=== PATIENT | female | born 1985 | race Asian ===

== ENCOUNTER 2024-06-28 10:20 | Outpatient (AMB) | payer OTHER, SELFPAY ==
--- NOTE | 2024-06-28 10:45 | A.OFFPC_ITS ---
Vital Signs 06/28/24 10:52 06/28/24 10:53 Height 5 ft 1.22 in Weight 184 lb 2 oz BMI 34.5 BP 148/104 H 144/102 H Blood Pressure Location Lt brachial Lt brachial Position Sitting Sitting Respiration 16 Pulse 108 H Pulse Source Pulse Oximeter Pulse Oximetry (%) 98 Oxygen Delivery Method Room Air Intake Visit Reasons: est care Tobacco use date assessed: 06/28/24 Dental Screening Dental Screen Date: 06/28/24 Did you have a dental visit in the last 12 months?: No Did you have a dental problem in the last 6 months where you did not have access to dental care?: No Was dental information given to patient?: Patient has dentist HPI HPI Comments History of Present Illness Details 38 year old female with a past medical h istory of gestational diabetes, kidney stones presenting to [facility] She has no concerns at this time. Blood pressure is high today. Says has not been elevated in the past. Denies headaches, vision changes. She is overdue for labs and for pigs feet cleaner care ROS CONSTITUTIONAL: Denies weight loss, fever and chills. HEENT: Denies changes in vision and hearing. RESPIRATORY: Denies SOB and cough. CV: Denies palpitations and CP GI: Denies abdominal pain, nausea, vomiting and diarrhea. : Denies dysuria and urinary frequency. MSK: Denies new myalgia and joint pain. SKIN: Denies rash and pruritus. NEUROLOGICAL: Denies headache PSYCHIATRIC: Denies recent changes in mood. PHYSICAL EXAM: GENERAL: Alert and oriented x 3. NAD EYES: EOMI. Anicteric. HENT: Moist mucous membranes. No scleral icterus. No cervical lymphadenopathy. LUNGS: Clear to auscultation bilaterally. CARDIOVASCULAR: Regular rate and rhythm. No murmur. No JVD. ABDOMEN: Soft, non-tender +bs EXTREMITIES: No edema. Non-tender. SKIN: No rashes or lesions. Warm. NEUROLOGIC: No focal neurological deficits. CN II-XII grossly intact PSYCHIATRIC: Cooperative. Appropriate mood and affect [facility] Medical History (Updated 06/28/24 @ 11:16 by Antoniette Bansal MD) Hx of nephrolithotomy with removal of calculi Surgical History (Updated 06/28/24 @ 11:20 by Shreya Teran CMA) H/O tubal ligation History of appendectomy H/O section Social History (Updated 06/28/24 @ 11:21 by Shreya Teran [facility] Housing: House Alcohol intake: current Comment: Rarely, on special occasions Patient Tobacco Use Status: Never used Tobacco e-Cigarette/Vaping Use: Never Used Second Hand Smoke Exposure: No service: No Current occupational status: unemployed Current occupational exposures/hazards: No Cognitive needs: No Hearing needs: No Vision needs: No Female Reproductive History Menstrual control method: permanent sterilization Permanent Sterilization: BTL (tubal ligation) Questionnaire PHQ-9 Over the last 2 weeks, how often have you been bothered by any of the following problems? 1. Little interest or pleasure in doing things: not at all 2. Feeling down, depressed, or hopeless: not at all 3. Trouble falling or staying asleep, or sleeping too much: not at all 4. Feeling tired or having little energy: not at all 5. Poor appetite or overeating: not at all 6. Feeling bad about yourself - or that you are a failure or have let yourself or your family down: not at all 7. Trouble concentrating on things, such as reading the newspaper or watching television: not at all 8. Moving or speaking so slowly that other people could have noticed. Or the opposite - being so fidgety or restless that you have been moving around a lot more than usual: not at all 9. Thoughts that you would be better off or of hurting yourself in some way: not at all Total score: 0 Depression Screening Interpretation: Negative Depression Screening Done: Yes 25050 - PHQ-9 Billing: Yes Source: Developed by Drs. Jaswinder Gonzalez, Lin Castillo, Fracisco Silva and colleagues, with an educational randy from [employer]. Thrive Questionnaire Date Thrive assessed: 06/28/24 I am a: Patient Within the past 12 months, did the food you bought not last and you didn't have the money to get more?: Never true Within the past 12 months, did you worry whether your food would run out before you got money to buy more?: Never true Do you have trouble paying for medicines?: No Do you have trouble getting transportation to medical appointments?: No Do you have trouble paying your heating and electricity bill?: No Do you have trouble taking care of your child, family member or friend?: No Do you have trouble with day-to-day activities such as bathing, preparing meals, shopping, managing finances, etc.?: No Are you currently unemployed and looking for a job?: No Are you interested in more education?: No Please select the resources that you would like help with: None THRIVE Score: 0 SONIA-7 AMB Questionnaire SONIA-7 Date SONIA - 7 assessed: 06/28/24 Feeling nervous, anxious, or on edge: 0 = Not at all Not being able to stop or control worryin = Not at all Worrying too much about different things: 0 = Not at all Trouble relaxin = Not at all Being so restless that it is hard to sit still: 0 = Not at all Becoming easily annoyed or irritable: 0 = Not at all Feeling afraid as if something awful might happen: 0 = Not at all Total SONIA-7 score (0-4 normal; 5-9 mild; 10-14 moderate; 15-21 severe): 0 Source: Developed by Drs. Jaswinder Gonzalez, Lin Castillo, Fracisco Silva and colleagues, with an educational randy from [employer]. SONIA-7 Assessment Billing SONIA-7 Assessment Tool: SONIA-7 Assessment 03078 Physical exam (Primary Care) Vital Signs: Last Vital Signs Pulse 108 H 06/28/24 10:52 Resp 16 06/28/24 10:52 BP 144/102 H 06/28/24 10:53 Pulse Ox 98 06/28/24 10:52 Oxygen Delivery Method Room Air 06/28/24 10:52 BMI result Body Mass Index 34.5 Tobacco/Smoking Status: Tobacco use Status Tobacco use date assessed 06/28/24 06/28/24 10:52 Patient Tobacco Use Status Never used Tobacco 06/28/24 10:52 e-Cigarette/Vaping Use Never Used 06/28/24 10:52 Depression Screening Interpretation: Negative Coding Level of Care Code New Pt Level 4 (91596) Diagnoses Encounter to establish care Z76.89 History of gestational diabetes Z86.32 History of kidney stones Z87.442 Elevated blood pressure reading with diagnosis of hypertension I10 Additional Codes PHQ-9 - 42815 - PHQ-9 Billing: Yes ([id number]) SONIA-7 Assessment Billing - SONIA-7 Assessment Tool: SONIA-7 Assessment 40272 ([id number]) Assessment & Plan Assessment & Plan (1) Encounter to establish care: Code(s): Z76.89 - Persons encountering health services in other specified circumstances Category: Medical (2) History of gestational diabetes: Code(s): Z86.32 - Personal history of gestational diabetes Category: Medical (3) History of kidney stones: Code(s): Z87.442 - Personal history of urinary calculi Category: Medical (4) Elevated blood pressure reading with diagnosis of hypertension: Code(s): I10 - Essential (primary) hypertension Category: Medical Plan 38 year old female presenting to establish care Past medical, surgical, social and family history reviewed Labs ordered Referral to gynecology Orders: Orders Complete Blood Count Auto Diff Today Z13.0 - Encounter for screening for diseases of the blood and blood-forming organs and certain disorders involving the immune mechanism, Z13.220 - Encounter for screening for lipoid disorders, Z13.228 - Encounter for screening for other metabolic disorders, Z86.32 - Personal history of gestational diabetes Comprehensive Met. Panel Today Z13.0 - Encounter for screening for diseases of the blood and blood-forming organs and certain disorders involving the immune mechanism, Z13.220 - Encounter for screening for lipoid disorders, Z13.228 - Encounter for screening for other metabolic disorders, Z86.32 - Personal history of gestational diabetes TSH reflex Free T4 Today Z13.0 - Encounter for screening for diseases of the blood and blood-forming organs and certain disorders involving the immune mechanism, Z13.220 - Encounter for screening for lipoid disorders, Z13.228 - Encounter for screening for other metabolic disorders, Z86.32 - Personal history of gestational diabetes Hemoglobin A1c Today Z13.0 - Encounter for screening for diseases of the blood and blood-forming organs and certain disorders involving the immune mechanism, Z13.220 - Encounter for screening for lipoid disorders, Z13.228 - Encounter for screening for other metabolic disorders, Z86.32 - Personal history of gestational diabetes Lipid Panel Today Z13.0 - Encounter for screening for diseases of the blood and blood-forming organs and certain disorders involving the immune mechanism, Z13.220 - Encounter for screening for lipoid disorders, Z13.228 - Encounter for screening for other metabolic disorders, Z86.32 - Personal history of gestational diabetes Referrals UNIVERSITY DEMONSTRATOR Referral Z76.89 - Persons encountering health services in other spe cified circumstances
[2024-06-28 10:52] VITALS: BP 148/104; PULSE 108; RESP 16; O2SAT 98; BMI 34.5
[2024-06-28 10:53] VITALS: BP 144/102
--- OUTSIDE RECORDS SUMMARY | 2024-06-28 12:13 | XMS_ITS | Clinical Summary ---
Author Organization [facility] Address [address] [place] [id number] Care Team Providers Care Tool Room Supervisor Name Role Phone Dee Short MD Primary Care Provider [phone] Allergies No known active allergies Active Problems Problem Noted Date Diagnosed Date PCOS (polycystic ovarian syndrome) 08/01/2021 Hirsutism 04/19/2021 Irregular menses 04/19/2021 Microalbuminuria 04/19/2021 HLD (hyperlipidemia) 09/16/2018 Obesity (BMI 30.0-34.9) 06/16/2018 Type II diabetes mellitus with renal manifestati ons 06/16/2018 Vitamin D deficiency 11/14/2017 Constipation 10/07/2017 Kidney stone 10/07/2017 Umbilical hernia without obstruction and without gangrene 10/07/2017 Immunizations Name Administration Dates Next Due Hepatitis B (Eavzxcp-E-Dpuuf , Recombivax HB-Adult) 19yo and older 12/19/2011,07/25/2011,06/16/2011 Influenza Quadravalent, MDCK , 0.5ml, preservative free (Flucelvax) 6mo and older 04/19/2021,04/17/2020,06/16/2018 Influenza trivalent, with pr eservative (Fluzone; Afluria) 6mo and older 02/08/2015,01/12/2014,12/22/2012,02/03 MMR, measles mumps and rubel la Live (Priorix; M-M-R II) 12mo and older 05/16/2011,01/08/2011 Moderna SARS-CoV-2 COVID-19, mRNA, LNP-S, preservative free 08/01/2020,07/04/2020 Pneumococcal polysaccharide 23 valent (Pneumovax 23) 2yo and older 04/19/2021 Td Tetanus diptheria (Tdvax) 7yo and older 01/08/2011 Tdap Tetanus diptheria acell ular pertussis (Boostrix; Adacel) 7yo and older 08/21/2016,05/16/2011 Surgical History Surgery Date Site/Laterality Comments SECTION PROCEDURE: HISTORICAL ; COMMENT: X2 CHOLECYSTECTOMY PROCEDURE: HISTORICAL CHOLECYSTECTOMY TUBAL LIGATION 09/27/2019 Bilateral PROCEDURE: HISTORICAL TUBAL LIGATION KIDNEY STONE SURGERY 09/2020 Left PROCEDURE: CT NEPHROLITHOTOMY REMOVAL CALCULUS Medical History Medical History Date Comments Gestational diabetes DX:Gestatio nal diabetes Vitamin D deficiency 11/14/2017 DX:Vitamin D deficiency Family History Medical History Relation Name Comments No Known Problems Brother x 2 No Known Problems Father Diabetes Mother No Known Problems Sister x 3 Breast cancer Neg Hx Colon cancer Neg Hx Ovarian cancer Neg Hx Relation Name Status Comments Brother x 2 Alive Father Alive Maternal Grandfather Maternal Grandmother Mother Alive Paternal Grandfather Paternal Grandmother Sister x 3 Alive Social History Tobacco Use Types Packs/Day Years Used Date Smoking Tobacco: Never Smokeless Tobacco: Former Alcohol Use Standard Drinks/Week Comments No 0 (1 standard drink = 0.6 oz pur e alcohol) Comments Unknown Sex and Gender Information Value Date Recorded Sex Assigned at Not on file Legal Sex Female 2:53 PM EST Gender Identity Not on file Sexual Orientation Not on file Obstetrics History Last Filed Vital Signs Vital Sign Reading Time Taken Comments Blood Pressure 120/77 07/31/2021 10:43 AM EDT Pulse 88 07/31/2021 10:43 AM EDT Temperature - - Respiratory Rate - - Oxygen Saturation - - Inhaled Oxygen Concentration - - Weight 85.9 kg (189 lb 6.4 oz) 07/31/2021 10:43 AM EDT Height 157.5 cm (5' 2 ) 07/31/2021 10:43 AM EDT Body Mass Index 34.64 07/31/2021 10:43 AM EDT Plan of Treatment Health Maintenance Due Date Last Done Comments Diabetes: Annual Foot Exam 11/07/1997 Diabetes: Annual Retina Eye Exam 11/07/1997 Depression Screening 02/19/2022 HIV Screening 02/19/2022 Hepatitis C Screening 02/19/2022 Social Influencers of Health Screening 02/19/2022 Diabetes: Blood Sugar Control Test (HGBA1C) 03/05/2022 04/19/2021 Diabetes: Annual Urine Albumin-Creatinine Ratio (uACR) 04/19/2022 04/19/2021 Diabetes: Annual GFR (Glomerular Filtration Rate) 04/19/2022 04/19/2021 Pneumococcal Vaccine: Pediatrics (0 to 5 Years) and At-Risk Patients (6 to 64 Years) (2 of 2 - PCV) 04/19/2022 04/19/2021 COVID-19 Vaccine (4 - season) 2023 03/15/2021, 08/01/2020, 07/04/2020 Influenza Vaccine (#1) 2023 , 04/17/2020, 06/16/2018, Additional history exists Cholesterol Screening (Lipid Panel) 04/19/2026 04/19/2021 Cervical Cancer Screening: HPV 07/31/2026 07/31/2021 DTaP,Tdap,and Td Vaccines (4 - Td or Tdap) 08/21/2026 08/21/2016, 05/16/2011, 01/08/2011 MMR Vaccines Aged Out 05/16/2011, 01/08/2011 No lo nger eligible based on patient's age to complete this topic Hepatitis B Vaccines Completed 12/19/2011, 07/25/2011, 06/16/2011 HIB Vaccines Aged Out No longer eligi ble based on patient's age to complete this topic HPV Vaccines Aged Out No longer eligi ble based on patient's age to complete this topic Hepatitis A Vaccines Aged Out No long er eligible based on patient's age to complete this topic IPV Vaccines Aged Out No longer eligi ble based on patient's age to complete this topic Meningococcal ACWY Vaccine Aged Out N o longer eligible based on patient's age to complete this topic Meningococcal B Vaccine Aged Out No l onger eligible based on patient's age to complete this topic RSV Immunization Patients Under 20 months Aged Out No longer eligible based on patient's age to complete this topic Varicella Vaccines Aged Out No longer eligible based on patient's age to complete this topic Procedures Procedure Name Priority Date/Time Associated Diagnosis Comments HM HPV Routine 07/31/2021 HM URINE ALBUMIN CREATININE RATIO Routine 04/19/2021 ANNUAL BMP BLOOD TEST Routine 04/19/2021 HEMOGLOBIN A1C Routine 04/19/2021 LIPID PANEL Routine 04/19/2021 from Last 3 Months or Most Recently Relevant to Health Maintenance Results * Cervical Cancer Screening: HPV (07/31/2021) Pathologist [facility] Cervical Cancer Screening: HPV negative, abstracted Result [facility] Provider HEALTH MAINTENANCE Final Result * Urine Albumin Creatinine Ratio (04/19/2021) [facility] Urine Albumin Creatinine Ratio abstracted Result [facility] Provider HEALTH MAINTENANCE Final Result * Annual BMP Blood Test (04/19/2021) [facility] Annual BMP Blood Test abstracted Result [facility] Provider HEALTH MAINTENANCE Final Result * Hemoglobin A1c (04/19/2021) [facility] Hemoglobin A1C 5.8 <=6.5 % Blood Venous blood specimen / Unknown Result [facility] Provider LAB BLOOD ORDERABLES [place] Result * (ABNORMAL) Lipid panel (04/19/2021) [facility] LDL/HDL Ratio 5(A) 0 - 4 Triglycerides 136 0 - 150 mg/dL Cholesterol 235(A) 0 - 200 mg/dL HDL 49 >=40 mg/dL LDL Cholesterol 159(A) 0 - 100 mg/dL Blood Venous blood specimen / Unknown Result [facility] Provider LAB BLOOD ORDERABLES [place] Result from Last 3 Months or Most Recently Relevant to Health Maintenance Care Teams Tool Room Supervisor Relationship Specialty Start Date End Date Dee Short MD [address] [place] [address] PCP - General Internal Medicine 10/1/21
--- OUTSIDE RECORDS SUMMARY | 2024-06-28 12:13 | XMS_ITS | Clinical Summary ---
Author Organization [facility] Address [address] [place] [address] Care Team Providers Care Line Locator Name Role Phone Unavailable Primary Care Provider Unavailabl e Source Comments PLEASE NOTE, if this patient is a minor, it may be UNLAWFUL to discuss sensitive information that is contained in these records (such as FAMILY PLANNING, MENTAL HEALTH or SUBSTANCE ABUSE) with the minor patient's parent or other person without the patient's specific authorization.[facility] Allergies No known active allergies Medications letrozole (FEMARA) 2.5 mg tabletIndication s:Infertility associated with anovulation Take 2 tabs po daily on days 3-7 of menstrual cycle. 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 5 Active cholecalciferol, vitamin D3, 2,000 unit capsuleIndicatio ns:Vitamin D deficiency disease Take 1 Cap by mouth once daily. 90 Cap 3 5 Active Active Problems Problem Noted Date Diagnosed Date Infertility associated with anovulation 02/09/20 15 Vitamin D deficiency disease 08/30/2012 Overview (12/22/2012): = 19 08/30/12 Obesity 06/16/2011 Overview (12/22/2012): BMI = 31.8 11/11/11 BMI = 33.1 08/27/12 Irregular menses Resolved Problems Problem Noted Date Diagnosed Date Resolved Date Pre-DM 09/02/2012 02/09/2015 Immunizations Immunization Administration Dates Next Due Flu, Preservative Free 02/08/2015 Hep B, Adult/Adol (ENERGIX/RECOMBIVAX) 2,07/25/2011,06/16/2011 History Of Varicella 05/16/2011 INFLUENZA, SEASONAL, INJECTABLE 12/22/2012,02/03 MMR (MMR II/Priorix) 05/16/2011,01/08/2011 Moderna COVID-19 Vaccine, re d cap blue label, 12+ Primary Series 08/01/2020,07/04/2020 TDAP 05/16/2011 Td(adult),2 Lf tetanus toxoi d,preservative free 01/08/2011 Family History Relation Name Status Comments Father Alive Mother Alive Social History Tobacco Use Types Packs/Day Years Used Date Smoking Tobacco: Never Smokeless Tobacco: Never Alcohol Use Standard Drinks/Week Comments No 0 (1 standard drink = 0.6 oz pur e alcohol) Social Connections Answer Date Recorded Social Connections and Isolation 0 07/04/2020 Financial Resource Strain Answer Date R ecorded Financial Resource Strain 0 2020 Stress Answer Date Recorded Stress 0 07/04/2020 Physical Activity Answer Date Recorded Physical Activity 0 07/04/2020 Food Insecurity Answer Date Recorded Food 0 07/04/2020 Transportation Needs Answer Date Record ed Transportation 0 07/04/2020 Housing Stability Answer Date Recorded Housing 0 07/04/2020 Safety and Environment Answer Date Lalito rded Safety 0 07/04/2020 Utilities Answer Date Recorded Utilities 0 07/04/2020 Employment Answer Date Recorded Employment 0 07/04/2020 Comments No Sex and Gender Information Value Date Recorded Sex Assigned at Not on file Legal Sex Female 11:36 AM PDT Gender Identity Not on file Sexual Orientation Not on file 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 Not on file Not on file Last Filed Vital Signs Vital Sign Reading Time Taken Comments Blood Pressure 110/70 02/08/2015 10:41 AM EST Pulse 72 03/11/2013 12:19 PM EST Temperature 36.7 ??C (98 ??F) 02/08/2015 10:41 AM EST Respiratory Rate 14 02/08/2015 10:41 AM EST Oxygen Saturation - - Inhaled Oxygen Concentration - - Weight 80.3 kg (177 lb) 02/08/2015 10:41 AM EST Height 154.9 cm (5' 1 ) 04/25/2013 10:42 AM EST Body Mass Index 33.44 04/25/2013 10:42 AM EST Plan of Treatment Health Maintenance Due Date Last Done Comments Anxiety Screening 1987 HPV Screening 1987 Hepatitis C Screening 1987 Pap + HPV 1987 Tobacco Screening 1987 HIV Screening 11/07/2002 Relationship Safety Screening/Counseling 11/07/2002 Cervical Cancer Screening 11/07/2008 Pap Smear 11/07/2008 Annual Preventive Care Visit 02/09/2016 02/08/2015 Hypertension Screening (#1) 02/07/2018 Diabetes Screening 02/08/2018 02/08/2015, 02/08/2015 [id number] ( season) 2023 021, 07/04/2020 Imm-Influenza (#1) 2023 04/17/2020, 0 06/16/2018, 02/08/2015, Additional history exists Alcohol and Drug Screen 03/23/2024 Depression Annual Screen 03/23/2024 Imm-DTaP/Tdap/Td (3 - Td or Tdap) 08/21/2026 08/21/2016, 05/16/2011, 01/08/2011 Imm-Hepatitis B Completed 12/19/2011, 050 06/2011, 06/16/2011 Cervical Ablation/Cold-Knife Conization Discontinued Cervical Cryotherapy Discontinued Colposcopy Discontinued Endometrial Biopsy Discontinued Excision/Leep Discontinued HPV Genotyping Discontinued Vaginal Pap Discontinued Vulvoscopy Discontinued Procedures Procedure Name Priority Date/Time Associated Diagnosis Comments HEMOGLOBIN GLYCOSYLATED A1C Routine 02/08/2015 11:40 AM EST Routine general medical examination at a health care facility Pre-DM from Last 3 Months or Most Recently Relevant to Health Maintenance Results * HEMOGLOBIN, GLYCOSYLATED (A1C) (02/08/2015 11:40 AM EST) GLYCATED HEMOGLOBIN A1C 5.7 <6.5 % [facility] ESTIM[facility] AVERAGE GLUCOSE 117 mg/dL [facility] Blood specimen (specimen) Blood / Unknown 02/08/2015 11:40 AM EST 02/08/2015 1:33 PM EST [facility] 02/08/2015 9:15 PM EST [employer] [address] [place] [address] PT ID [id number] ORD# [id number] [facility] - BLOOD DRAW Final Res ult [facility] [address] [place] [address], from Last 3 Months or Most Recently Relevant to Health Maintenance Insurance [facility] [employer] PL[employer] Member Subscriber Plan / Payer (Ef fective 2020-Present) Name:Elsa Godfrey Relation to Subscriber:Self Name:Elsa Godfrey Payer ID:[id number] Group ID:[id number] Type:Medicaid Address: [facility] [address] [place] [address]
== END 2024-06-28 12:39 | disposition home or self-care (01) ==
PROVIDERS: PCP Internal Medicine; Visit Provider Internal Medicine
DX: Z76.89 Persons encountering health services in other specified circumstances (principal); Z86.32 Personal history of gestational diabetes; Z87.442 Personal history of urinary calculi; I10 Essential (primary) hypertension

== ENCOUNTER → 2024-06-28 10:20 | Outpatient (BNVA) | payer OTHER, SELFPAY | PROVIDERS: PCP Internal Medicine; Visit Provider Internal Medicine | DX: I10 Essential (primary) hypertension (principal); N20.0 Calculus of kidney; Z87.442 Personal history of urinary calculi; Z86.32 Personal history of gestational diabetes; Z76.89 Persons encountering health services in other specified circumstances | CPT/HCPCS: 96127; 99202 ==

== ENCOUNTER 2024-06-30 11:43 | Outpatient (REF) | payer OTHER, SELFPAY ==
--- OUTSIDE RECORDS SUMMARY | 2024-06-30 14:19 | XMS_ITS | Clinical Summary ---
Author Organization [facility] Address [address] [place] [address] Care Team Providers Care Care Administrative Tech Name Role Phone Unavailable Primary Care Provider [...] on days 3-7 of menstrual cycle. 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 - 02/08/2015 9:15 PM EST [employer] [address] [place] [address] PT ID [id number] ORD# [id number] [facility] - BLOOD DRAW Final Res ult [facility] [address] [place] [address], from Last 3 Months or Most Recently Relevant to Health Maintenance Insurance [facility] [employer] PLAN Member Subscriber Plan / Payer (Ef fective 2020-Present) Name:Elsa Godfrey Relation to Subscriber:Self Name:Elsa Godfrey Payer ID:[id number] Group ID:[id number] Type:Medicaid Address: [facility] [address] [place] [address]
--- OUTSIDE RECORDS SUMMARY | 2024-06-30 14:19 | XMS_ITS | Clinical Summary ---
Author Organization [facility] it Address [id number] [place] [id number] Care Team Providers Care Java Scala Developer Name Role Phone Dee Short MD Primary Care Provider [phone] Allergies No known active allergies Active Problems Problem Noted Date Diagnosed Date PCOS (polycystic ovarian syndrome) 08/01/2021 Hirsutism 04/19/2021 Irregular menses 04/19/2021 Microalbuminuria 04/19/2021 HLD (hyperlipidemia) 09/16/2018 Obesity (BMI 30.0-34.9) 06/16/2018 Type II diabetes mellitus wi th renal manifestations (CMS/HCC V24, CMS/HCC V28) 06/16/2018 Vitamin D deficiency 11/14/2017 Constipation 10/07/2017 Kidney stone 10/07/2017 Umbilical hernia without obstruction and without gangrene 10/07/2017 Immunizations Name Administration Dates Next Due Hepatitis B ([id number] , Recombivax HB-Adult) 19yo and older 12/19/2011,07/25/2011,06/16/2011 [...] LIGATION KIDNEY STONE SURGERY 09/2020 Left PROCEDURE: AR NEPHROLITHOTOMY REMOVAL CALCULUS Medical History Medical History [...] season) 2023 03/15/2021, 08/01/2020, 07/04/2020 Influenza Vaccine (Season Ended) 2024 04/19/2021, 04/17/2020, 06/16/2018, Additional history exists Cholesterol Screening [...] Results * Cervical Cancer Screening: HPV (07/31/2021) [facility] Cervical Cancer Screening: HPV negative, abstracted Result [facility] Provider HEALTH MAINTENANCE Final Result * Urine Albumin Creatinine Ratio (04/19/2021) [facility] Urine Albumin Creatinine Ratio abstracted Result [facility] Provider HEALTH MAINTENANCE Final Result * Annual BMP Blood Test (04/19/2021) [facility] Annual BMP Blood Test abstracted Result [facility] Provider HEALTH MAINTENANCE Final Result * Hemoglobin A1c (04/19/2021) [facility] Hemoglobin A1C 5.8 <=6.5 % Blood Venous blood specimen / Unknown Result [facility] Provider LAB BLOOD ORDERABLES [facility] Result * (ABNORMAL) Lipid panel (04/19/2021) [facility] LDL/HDL Ratio 5(A) 0 - 4 Triglycerides 136 0 - 150 mg/dL Cholesterol 235(A) 0 - 200 mg/dL HDL 49 >=40 mg/dL LDL Cholesterol 159(A) 0 - 100 mg/dL Blood Venous blood specimen / Unknown Result [facility] Provider LAB BLOOD ORDERABLES [facility] Result from Last 3 Months or Most Recently Relevant to Health Maintenance Care Teams Java Scala Developer Relationship Specialty Start Date End Date Dee Short MD [address] [place] [id number] PCP - General Internal Medicine 12/21/20
[2024-06-30 14:39] LABS: MANUAL DIFF FLAG NO
[2024-06-30 14:54] LABS: Basophils Percent Auto 0.7 % (0-2); Eosinophils Absolute Auto 0.3 X10*3/uL (0.0-0.4); Eosinophils Percent Auto 4.6 % (0-4); Hematocrit 38.5 % (37.0-47.0); Hemoglobin 12.5 g/dl (12.0-16.0); Imm Gran Abs Auto 0.01 X10*3/uL (0.00-0.03); Imm Gran Pct Auto 0.2 % (0.0-0.4); Lymphocytes Absolute Auto 1.6 X10*3/uL (1.2-4.9); Mean Corpuscular HGB Conc 32.5 g/dl (31.0-35.0); Mean Platelet Volume 11.9 fL (9.4-12.3); Monocytes Absolute Auto 0.5 X10*3/uL (0.1-1.2); Monocytes Percent Auto 8.3 % (2-11); Neutrophils Absolute Auto 3.3 x10*3/uL (2.0-8.3); Neutrophils Percent Auto 58.2 % (45-73); Platelet Count 244 X10*3/uL (160-400); Red Blood Count 4.81 X10*6/uL (4.20-5.50); White Blood Count 5.6 X10*3/uL (4.8-10.8)
[2024-06-30 15:10] LABS: Estimated Average Glucose 126 mg/dL; Hemoglobin A1C 140.8025 umol/L; Total Hemoglobin (HGBA1C) 3376.9263 umol/L
[2024-06-30 15:17] LABS: Alanine Aminotransferase 126 U/L (0-31); Albumin Level 3.9 g/dL (3.5-5.0); Anion Gap 11 (12-20); Aspartate Amino Transferase 119 U/L (5-31); Bilirubin Total 0.6 mg/dL (0.0-1.0); Blood Urea Nitrogen 5 mg/dL (9-16); Carbon Dioxide 26 mmol/L (22-29); Chloride 105 mmol/L (96-108); Cholesterol 243 mg/dL (<200); Estimated Glomerular Filt Rate > 60; Glucose Random 119 mg/dL (60-115); HDL Cholesterol 51 mg/dL (>40); LDL Cholesterol Calculated 156 mg/dL (<100); Potassium 3.1 mmol/L (3.3-5.1); Sodium 139 mmol/L (135-145); Total Protein 6.9 g/dL (6.5-8.0); Triglycerides 181 mg/dL (<150)
[2024-06-30 15:27] LABS: Alkaline Phosphatase 109 U/L (39-117)
== END 2024-06-30 11:44 | disposition home or self-care (01) ==
LOC: HO.WFDLDS 11:43
PROVIDERS: Visit Provider Internal Medicine
DX: Z13.0 Encounter for screening for diseases of the blood and blood-forming organs and certain disorders involving the immune mechanism (principal); Z13.228 Encounter for screening for other metabolic disorders; Z13.220 Encounter for screening for lipoid disorders; Z86.32 Personal history of gestational diabetes
CPT/HCPCS: 36415; 80053; 80061; 83036; 84443; 85025